=== PATIENT | male | born 1940 | race Caucasian/White ===

== ENCOUNTER → 2017-12-10 08:32 | Outpatient (CLI) | payer MEDICARE, OTHER, SELFPAY ==
--- NOTE | 2017-12-10 08:37 | CA_ITS ---
PROCEDURE: 2-D M-mode and color Doppler study INDICATIONS FOR THE TEST: Chest pain COPD Heart Murmur Tobacco SmokingX Palpitations Fatigue Syncope Edema HypertensionXDiabetes Mellitus Rheumatic Fever SOB PHAM Obesity Hyperlipidemia Family History HD Additional History AF PATIENT INFORMATION HEIGHT: 72 WEIGHT:210 GENDER: Male B/P:134/84 2-D/M-MODE INTERPRETATION: 2-D MEASUREMENTS OBSERVED VALUES IN CMS Right Ventricular Dimension (RVDd) 2.8 Interventricular Septum (Thickness)(IVsd) 1.0 Left Ventricular Internal Dimensions(LVIDd) 4.9 Left Ventricular Posterior Wall (Thickness)(LVPWd) 1.2 Aortic Root 3.6 Aortic Cusp Separation 2.1 Left Atrial Dimensions (LAD) 3.8 2D 1. Left atrium is mildly enlarged, left ventricle is normal size, mild concentric left ventricular hypertrophy, visually estimated ejection fraction of 55% with no regional wall motion abnormality. 2. The right atrium and right ventricle are normal size and contractility. 3. The aortic valve is minimally thickened and fibrosed. 4. The mitral and tricuspid valve leaflets are minimally thickened 5. The pulmonic valve is poorly visualized. 6. No significant pericardial effusion noted. DOPPLER INTERROGATION: Doppler interrogation of the aortic, mitral and tricuspid valvular presence of mild mitral and tricuspid regurgitation, calculated right ventricular systolic pressure is 45 mmHg consistent with moderate pulmonary hypertension, diastolic parameters are inconclusive. CONCLUSION: 1. Mildly enlarged left atrium, normal left ventricular size, mild concentric left ventricular hypertrophy, visually estimated ejection fraction 55% with no regional wall motion abnormality, diastolic parameters are inconclusive. 2. Mild mitral and tricuspid regurgitation, calculated right ventricular systolic pressure is 45 mmHg consistent with moderate pulmonary hypertension. 3. No significant pericardial effusion noted.
== END ==
PROVIDERS: PCP Family Medicine; Visit Provider Family Medicine
DX: I48.0 Paroxysmal atrial fibrillation (principal)
CPT/HCPCS: 93306

== ENCOUNTER → 2018-02-02 13:10 | Outpatient (CLI) | payer MEDICARE, OTHER, SELFPAY ==
--- NOTE | 2018-02-02 13:27 | CT_ITS ---
CT lung screening EXAM: CT LUNG LOW DOSE WO CONTRAST HISTORY: 30 pack-year smoking history asymptomatic for lung cancer ITS.REASON: H/O TOBACCO DEPENDENCE ORDERING PHYSICIAN: Mauro Garcia MD PATIENT AGE: 77 years COMPARISON: None TECHNIQUE: The exam was performed on a GE Light Speed [address] scanner using 2.90 mGy CTDI. A low dose helical CT CHEST was performed on a multi-detector scanner. All CT scans at the facility use one or more dose reduction, viz: automated exposure control, ma/kV adjustment per patient size (including targeted exams where dose is matched to indication, i.e. head), or iterative reconstruction technique. The LDCT was performed in a facility that meets the criteria for the screening program. Data regarding this exam was submitted to ACR which is an approved registry. The order for this exam indicates that it came as a result of a lung cancer screening counseling shard decision-making visit that included all the elements required of such a visit including smoking cessation. The radiologist interpreting this exam meets the [facility] criteria for the LDCT lung cancer screening program. The exam is reported using the Lung-RADS classification scale and reported to the ACR registry. NOTE: This study was performed for the specific purposes of lung cancer screening and is not an alternative to diagnostic chest CT. RADIATION DOSE: CTDI vol(CT dose Index-volume) = 2.90mG DLP (Dose Length Product) = 112.29 mGcm FINDINGS: Chronic obstructive bronchitis with hyperinflation and bronchial thickening 3 mm noncalcified nodule right lower lobe image #52. 3 mm calcified nodule right lower lobe image #55. Calcified granuloma right lung base posteriorly image #63 Other findings: Coronary artery calcifications, 2.7 cm left adrenal nodule and -9 Hounsfield units consistent with an adenoma. Old right rib fractures IMPRESSION: 1. Lung RADS Category: 2, benign 2. Other findings: COPD, coronary artery disease RECOMMENDATIONS: 12 month LDCT follow-up
[2018-02-02 14:10] VITALS: PULSE 81; PULSE 94
== END ==
PROVIDERS: PCP Family Medicine; Visit Provider Family Medicine
DX: I27.20 Pulmonary hypertension, unspecified (principal); F17.210 Nicotine dependence, cigarettes, uncomplicated; Z87.891 Personal history of nicotine dependence
CPT/HCPCS: 94060; 94640

== ENCOUNTER → 2019-02-03 14:47 | Outpatient (CLI) | payer MEDICARE, OTHER, SELFPAY ==
[2019-02-03 16:31] VITALS: BMI 27.1
== END ==
PROVIDERS: PCP Family Medicine; Visit Provider Family Medicine
DX: E11.9 Type 2 diabetes mellitus without complications (principal); Z71.3 Dietary counseling and surveillance
CPT/HCPCS: 97802

== ENCOUNTER → 2020-01-27 10:07 | Outpatient (CLI) | payer MEDICARE, OTHER, SELFPAY ==
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
[2020-01-27 10:55] LABS: Blood Urea Nitrogen 30 mg/dl (9-20); Estimated Glomerular Filt Rate 65 ml/min (>60); GFR (African American) 79 ML/MIN (>60)
== END ==
PROVIDERS: PCP Family Medicine; Visit Provider Family Medicine
DX: H53.9 Unspecified visual disturbance (principal); H53.40 Unspecified visual field defects; E11.65 Type 2 diabetes mellitus with hyperglycemia; I10 Essential (primary) hypertension; I48.91 Unspecified atrial fibrillation
CPT/HCPCS: 36415; 70553; 82565; 84520; A9576

== ENCOUNTER → 2020-02-05 08:22 | Outpatient (CLI) | payer MEDICARE, OTHER, SELFPAY ==
--- NOTE | 2020-02-05 08:26 | CA_ITS ---
APPROVED REPORT Gravity Prospector: Michelle Resendiz RVT Laterality: Bilateral Study Quality: Good Risk Factors Hypertension: TIA/CVA History Smoking CVA Doppler Spectral Velocity Analysis ECA (R) 108.00/13.90 cm/s ECA (L) 101.00/16.50 cm/s dICA (R) 78.60/29.20 cm/s dICA (L) 88.30/29.90 cm/s Dena (R) 68.10/20.20 cm/s Dena (L) 73.30/23.20 cm/s pICA (R) 49.40/15.70 cm/s pICA (L) 68.10/21.70 cm/s dCCA (R) 88.80/19.20 cm/s dCCA (L) 67.30/18.70 cm/s pCCA (R) 113.30/23.50 cm/s pCCA (L) 77.80/21.00 cm/s Vert (R) 55.40/17.20 cm/s Vert (L) 56.10/17.20 cm/s ICA/CCA 0.89 ICA/CCA 1.31 Findings Study suggests less than 20% stenosis of the right internal cartoid artery. Study suggests less than 20% stenosis of the left internal cartoid artery. Antegrade flow seen bilateral vertebral arteries. Conclusion Study suggests less than 20% stenosis of the right internal cartoid artery. Study suggests less than 20% stenosis of the left internal cartoid artery. Antegrade flow seen bilateral vertebral arteries. Electronically signed by : Govind Hastings MD 02/05/2020 17:03:59
--- NOTE | 2020-02-05 08:26 | CA_ITS ---
APPROVED REPORT EXAM: Comprehensive 2D, Doppler, and color-flow Echocardiogram Panel Fitter: Michelle Resendiz RVT Ht: 6 ft 0 in Wt: 220lbs BSA: 2.22 BP: 123/62 mmHg Indications: A-FIB,CVA,SMOKER,HTN 2D Dimensions LVOT 2.06 cm (M/F) 1.5-2.5 M-Mode Dimensions RVDd 3.22 cm (0.9-2.6) LA Diam 4.58 cm (1.9-4.0) LVDd 4.63 cm (3.5-5.7) Ao Diam 3.27 cm (2.0-3.7) LVDs 2.86 cm (3.5-5.7) IVSd 0.56 cm (0.6-1.1) PWd 0.89 cm (0.6-1.1) EF (Teich) 68.50% FS 38.20% EDV (Teich) 98.80 mL ESV (Teich) 31.10 mL LV Diastology E Decel Time 343.00 (160-240 msec) E/A Ratio 0.8 MED E' 10.10 (< 7 cm/sec) E'/MED E' Ratio 8.34 (>14) LAT E' 14.80 (<10 cm/sec) E/LAT E' Ratio 5.69 (>14) Mitral Valve MV E Max Arun. 84.00 (40-130 cm/s) MV A Velocity 101.00 (40-130 cm/s) E/A Ratio 0.83 MV Decel. Time 343.00 (160-240 ms) MV PHT 101.00 ms Pulmonary Valve PV Peak Velocity 85.00 (50-150 cm/s) Tricuspid Valve TR P. Velocity 281.00 cm/s RAP Estimate 10.00 mmHg RVSP 41.60 mmHg Left Ventricle Left atrium is mildly enlarged, left ventricle is normal size, mild concentric left ventricular hypertrophy, visually estimated ejection fraction 55% with no regional wall motion abnormality, grade 1 diastolic dysfunction seen without tissue Doppler evidence of raise left atrial pressure. Right Ventricle Right atrium and right ventricle are normal size and contractility. Aortic Valve Aortic valve is minimally thickened and fibrosed, there is no aortic stenosis or aortic insufficiency. Mitral Valve Mitral valve is grossly normal, there is mild mitral regurgitation. Tricuspid Valve Tricuspid valve is grossly normal, there is mild tricuspid regurgitation, tricuspid regurgitation jet velocity is inadequate for calculation of the right ventricular systolic pressure. Pulmonic Valve Pulmonic valve is poorly visualized. Great Vessels Aortic root is normal size. Pericardium No significant pericardial effusion noted. Conclusion 1. Mildly low left atrium, normal left ventricular size, mild concentric left ventricular hypertrophy, visually estimated ejection fraction 55% with no regional wall motion abnormality, grade 1 diastolic dysfunction seen without tissue Doppler evidence of raise left atrial pressure. 2. Mild mitral and tricuspid regurgitation 3. No significant pericardial effusion noted. Electronically signed by : Miki King, 02/06/2020 06:10:45
== END ==
PROVIDERS: PCP Family Medicine; Visit Provider Family Medicine
DX: I69.398 Other sequelae of cerebral infarction; H53.469 Homonymous bilateral field defects, unspecified side; I10 Essential (primary) hypertension; I48.0 Paroxysmal atrial fibrillation; R09.89 Other specified symptoms and signs involving the circulatory and respiratory systems
CPT/HCPCS: 93306; 93880

== ENCOUNTER 2020-03-13 18:54 | Emergency (ER) | payer MEDICARE, OTHER, SELFPAY ==
[2020-03-13 18:55] VITALS: BMI 27.8
--- NOTE | 2020-03-13 18:55 | CT_ITS ---
PROCEDURE: CT HEAD/BRAIN WO CON CLINICAL INDICATION: R sided weakness, altered speech Stroke alert COMPARISON: CT HEADWO CT head/brain wo con from 09/17/2018 TECHNIQUE: Axial images obtained. All CT scans at the facility use one or more dose reduction, viz: automated exposure control, ma/kV adjustment per patient size (including targeted exams where dose is matched to indication, i.e. head), or iterative reconstruction technique. FINDINGS: No midline shift, mass effect, intracranial hemorrhage, hydrocephalus, or extra-axial fluid collection is evident. There is subtle effacement of the brar-white matter differentiation the left temporal parietal junction which may be due to acute infarction. No midline shift or intracranial hemorrhage evident. There is some generalized motion artifact. Low-density changes are present in the right occipital lobe consistent with an old area of infarction. There is generalized atrophy with hypoattenuation of the periventricular white matter consistent with microangiopathic changes.The calvarium has an unremarkable appearance. No mastoid effusion. No sinus air-fluid level. IMPRESSION: 1. Possible acute infarction in the left temporoparietal junction. 2. Encephalomalacia change in the right occipital lobe. 3. Motion artifact which does decrease fine detail. Dictated by: Govind Hastings MD 03/14/2020 06:50 Govind Hastings MD in [place] 03/14/2020 06:50
--- NOTE | 2020-03-13 18:56 | PC.NURSE ---
pt to CT on ambulance stretcher with DARCY choi -stroke alert called
--- NOTE | 2020-03-13 19:00 | PC.NURSE ---
185 Stroke alert called 185Jason MAURO at bedside with EMS 185 pt sent straight up to CT accompanied by EMS and DARCY Robles
--- NOTE | 2020-03-13 19:06 | PC.NURSE ---
Pt returned from rad.
--- NOTE | 2020-03-13 19:07 | HMH.EDGENADL ---
ED Disposition Clinical Impression: Cerebrovascular accident Qualifiers: CVA mechanism: unspecified Qualified Code(s): I63.9 - Cerebral infarction, unspecified Disposition: Xfer Short-Term Hosp Condition on Discharge: Serious Referrals: Mauro Garcia MD [Primary Care Provider] - Forms: Transfer Record - ED - Critical Care Critical Care Time: Yes Attestation: On 03/13/20, the high probability of a clinically significant, sudden or life threatening deterioration of the following system(s) required my full and direct attention, intervention and personal management. The time I documented below is in addition to time spent performing reported procedures but includes the following listed in this critical care notation. Total Critical Care Time: 30 Vital system(s) involved:: Central Nervous System My critical care processes included: Assessment & monitoring of V/S, Initial and Re-exams, Data Review/Interpretation, Coordinating Care, Medication Orders and management, Documentation Medical Decision Making - Daniel Inquiry Pt receiving controlled substance: No Vital Signs: 03/13/20 19:16 Temperature 99.0 F Temperature Source Rectal Pulse Rate [Left Radial] 119 H Respiratory Rate 18 Blood Pressure [Right Arm] 119/72 Blood Pressure Mean [Right Arm] 87 Blood Pressure Source [Right Arm] Automatic Cuff Blood Pressure Position [Right Arm] Sitting 02 Sat by Pulse Oximetry 95 Oxygen Delivery Method Room Air - Lab Data Lab Results 03/13/20 19:10: WBC 18.3 H, RBC 4.05 L, Hgb 12.5 L, Hct 39.9 L, MCV 98.5 H, MCH 30.8, MCHC 31.3 L, RDW 16.6, Plt Count 100 L, MPV 9.2, Neut % (Auto) 73.5, Lymph % (Auto) 17.1, [place] % (Auto) 5.8, Eos % (Auto) 3.0, Baso % (Auto) 0.6, Neut # (Auto) 13.4 H, Lymph # (Auto) 3.1, [place] # (Auto) 1.1 H, Eos # (Auto) 0.6 H, Baso # (Auto) 0.1 03/13/20 19:10: PT 17.5 H, INR 1.65 H, APTT 38.7 H 03/13/20 19:10: Sodium 135 L, Potassium 4.1, Chloride 103, Carbon Dioxide 31 H, Anion Gap 5.1, BUN 46 H, Creatinine 0.90, Estimated Creat Clear 73, Estimated GFR 82, Est GFR ( Amer) 99, Glucose 128 H, Total Bilirubin 0.9, AST 94 H, ALT 46, Alkaline Phosphatase 280 H 03/13/20 19:16: Urine Color Dk yellow, Urine Appearance Clear, Urine pH 6.0, Ur Specific [place] 1.025, Urine Protein Negative, Urine Glucose (UA) Negative, Urine Ketones Negative, Urine Blood 1+, Urine Nitrate Negative, Urine Bilirubin Negative, Urine Urobilinogen 1.0, Ur Leukocyte Esterase Negative, Urine WBC 3-5, Ur Squamous Epith Cells 3-5, Urine Bacteria Trace Result diagrams: 03/13/20 19:10 03/13/20 19:10 Orders (Tests/Meds): ORDERS Category Date Time Status CT head/brain wo con Stat Cat Scan 03/13/20 18:55 Taken XR chest portable Stat Exams 03/13/20 20:17 Ordered XR chest portable Stat Exams 03/13/20 20:17 Ordered Complete Blood Count Auto Diff Stat Lab 03/13/20 19:10 Results Comprehensive Metabolic Panel Stat Lab 03/13/20 19:10 Results Drug Screen,Urine Stat Lab 03/13/20 19:16 Received PT/PTT Stat Lab 03/13/20 20:17 Ordered Trop I [Troponin I] Stat Lab 03/13/20 20:16 Ordered Troponin I Q3H Lab 03/13/20 23:30 Ordered Troponin I Q3H Lab 03/14/20 02:30 Ordered - CT Data CT Scan: Head Time Received: 19:20 ([facility]) ED CT Reviewed: Yes: I discussed the CT results w/the radiologist Findings Narrative: Streak artifact present. Likely acute infarct in the left MCA area. - ECG Data Tracing #1 EKG interpreted by Tra Madrigal MD: Rhythm: Atrial fib with rapid ventricular response Rate: 124 [place]: normal Ectopy: none Conduction: normal ST Segment Changes: Nonspecific T Wave Changes: Nonspecific Q Waves: none No evidence of acute ischemia or injury - Physician Consults Physician Consulted: Nakita Duncan stroke team Time: 19:35 Reason -: Neurological Eval/Care Comment/Response: Patient appears to have had a large vessel left middle cerebral artery area infarction. He is not a candidate for TPA as time of
[2020-03-13 19:16] VITALS: BP 119/72; PULSE 119; RESP 18; TEMP 37.2; O2SAT 95; BMI 25.9
--- NOTE | 2020-03-13 19:17 | ECG_ITS ---
APPROVED REPORT Exam: Resting ECG HR:124 bpm ECG Measurements Heart Rate 124 AXES QRSd 80 QRS 2 QT 392 T -20 QTc 563 Conclusion Accelerated Junctional rhythm with occasional premature ventricular complexes and fusion complexes Nonspecific ST and T wave abnormality Abnormal ECG Electronically signed by : Mauro Appiah, 03/14/2020 20:56:49
--- NOTE | 2020-03-13 19:21 | PC.NURSE ---
aprox. time. back from RAD. Dr. Madrigal gives NIH score of 13 at this time
--- NOTE | 2020-03-13 19:22 | PC.NURSE ---
calling [facility] for the stroke team
[2020-03-13 19:29] VITALS: BP 114/46; PULSE 114; RESP 16; TEMP 37.2; O2SAT 96
--- NOTE | 2020-03-13 19:29 | PC.NURSE ---
on the phone with . pt accepted by Dr. Hidalgo at ER
[2020-03-13 19:30] VITALS: BP 114/46; PULSE 110; RESP 17; O2SAT 94
--- NOTE | 2020-03-13 19:32 | PC.NURSE ---
Travis RN at bedside checking pedal pulses. reported +2 pulses in both feet auscultated with doppler
--- NOTE | 2020-03-13 19:35 | PC.NURSE ---
call placed to [facility] for transfer to . accepted by dr puckett
--- NOTE | 2020-03-13 19:36 | INFXCTL.NOTE ---
contacting [facility] at this time
--- NOTE | 2020-03-13 19:40 | PC.NURSE ---
flight accepted by [facility] at this time.
[2020-03-13 19:50] LABS: Alanine Aminotransferase 46 U/L (12-78); Alkaline Phosphatase 280 U/L (38-126); Anion Gap 5.1 mEq/L (5-15); Aspartate Amino Transferase 94 U/L (17-59); Bilirubin,Total 0.9 mg/dl (0.2-1.3); Blood Urea Nitrogen 46 mg/dl (9-20); Carbon Dioxide 31 mmol/L (22.0-30.0); Chloride 103 mmol/L (98-107); Creatinine Clearance Estimated 73 mL/min (50-200); Estimated Glomerular Filt Rate 82 ml/min (>60); GFR (African American) 99 ML/MIN (>60); Glucose 128 mg/dl (74-100); Potassium 4.1 mmoL/L (3.5-5.1); Sodium 135 mmol/L (136-145)
[2020-03-13 19:51] LABS: Basophils # 0.1 K/mm3 (0-0.2); Basophils % 0.6 % (0.1-2.0); Eosinophils # 0.6 K/mm3 (0.0-0.4); Hematocrit 39.9 % (42.0-52.0); Hemoglobin 12.5 g/dL (14.1-18.0); Lymphocytes # 3.1 K/mm3 (0.7-4.5); Lymphocytes % 17.1 % (10-50); Mean Corpuscular HGB Conc 31.3 g/dL (31.8-35.4); Mean Corpuscular Hemoglobin 30.8 pg (27.0-31.2); Mean Corpuscular Volume 98.5 fl (80-94); Mean Platelet Volume 9.2 fl (7.4-10.4); Monocytes # 1.1 K/mm3 (0.1-1.0); Monocytes % 5.8 % (1.7-9.3); Neutrophils # 13.4 K/mm3 (1.8-7.8); Neutrophils % 73.5 % (37.0-80.0); Platelet Count 100 K/mm3 (142-424); Red Blood Count 4.05 M/mm3 (4.60-6.20); Red Cell Distribution Width 16.6 % (11.5-17.5); White Blood Count 18.3 K/mm3 (4.8-10.8)
[2020-03-13 19:53] LABS: INR 1.65 (0.9-1.1); MANUAL DIFFERENTIAL MANUAL DIFFERENTIAL (MANUAL DIFF); Prothrombin Time 17.5 seconds (9.4-11.8)
[2020-03-13 19:54] LABS: Activated Partial Thrombo Time 38.7 seconds (23.6-34.0)
--- NOTE | 2020-03-13 19:54 | PC.NURSE ---
report called to Efren Ly RN at ER
[2020-03-13 19:58] LABS: Appearance,Urine CLEAR (Clear); Bilirubin,Urine Negative (Negative); Blood, Urine 1+ (Negative); Color,Urine DK YELLOW (Yellow); Glucose,Urine (UA) Negative (Negative); Ketones,Urine Negative (Negative); Leukocyte Esterase,Urine Negative (Negative); Microscopic, Urine URINE MICROSCOPIC (MICROSCOPIC); Nitrate,Urine Negative (Negative); Protein,Urine Negative (Negative); Specific Gravity, Urine 1.025 (1.005-1.030)
[2020-03-13 20:00] VITALS: BP 117/72; PULSE 120; RESP 17; O2SAT 95
[2020-03-13 20:12] LABS: Bacteria,Urine Trace /lpf
[2020-03-13 20:16] LABS: Eosinophils % 1 % (0-3); Lymphocytes % 16 % (10-50); Monocytes % 7 % (2-9); Neutrophils % 76 % (42-76); Total Cells Counted 100
[2020-03-13 20:16] LABS: Amphetamine/Metha Screen,Urine Negative ng/ml (<1000); Barbiturates Screen,Urine Negative ng/ml (<200)
[2020-03-13 20:17] LABS: Benzodiazepines Screen,Urine Negative ng/ml (<200)
--- NOTE | 2020-03-13 20:17 | XR_ITS ---
PROCEDURE: XR CHEST PORTABLE CLINICAL HISTORY: stroke symptoms Stroke alert COMPARISON: No exams were available for comparison FINDINGS: Cardiomegaly without failure. Low lung volumes. There are atelectatic changes in the right lung base. There is consolidation in the left lower lobe with silhouetting out of the left hemidiaphragm.There is some increased density in the left hilum which may be related to the underlying vasculature. Upright PA and lateral chest/chest CT may provide further evaluation No acute bony abnormalities. IMPRESSION: Consolidation in the left lung base with possible left hilar mass. Consider chest CT with contrast for further evaluation. Dictated by: Govind Hastings MD 03/14/2020 05:44 Govind Hastings MD in [place] 03/14/2020 05:44
[2020-03-13 20:18] LABS: Cannabinoid Screen,Urine Negative ng/ml (<50); Cocaine Screen,Urine Negative ng/ml (<300)
[2020-03-13 20:19] LABS: Methadone Screen,Urine Negative ng/ml (<300)
[2020-03-13 20:20] LABS: Opiate Screen,Urine Negative ng/ml (<300); Phencyclidine Screen,Urine Negative ng/ml (<25)
[2020-03-13 20:22] LABS: Albumin Level 2.6 g/dl (3.5-5.0); Albumin/Globulin Ratio 0.7 (1.1-1.8); Anisocytosis 1+; Calcium 9.3 mg/dl (8.4-10.2); Globulin 3.8 g/dL (1.3-3.2); Hypochromasia 1+; Macrocytosis 1+; Platelet Estimate Slight Decrease; RBC Morphology Normal; Total Protein,Serum 6.4 g/dl (6.3-8.2)
--- NOTE | 2020-03-13 20:29 | PC.NURSE ---
[facility] at bedside
[2020-03-13 20:30] VITALS: BP 141/57; PULSE 140; RESP 19; O2SAT 96
--- NOTE | 2020-03-13 20:30 | PC.NURSE ---
report given to [facility]
--- NOTE | 2020-03-13 20:36 | PC.NURSE ---
patient left er with flight crew
[2020-03-13 20:44] VITALS: BP 141/57; PULSE 140; RESP 16; TEMP 37.2; O2SAT 96
[2020-05-15 14:00] LABS: POC Glucose,Bedside 111 (70-110)
== END 2020-03-13 20:49 | disposition short-term general hospital (02) ==
PROVIDERS: Emergency Provider Emergency Medicine; PCP Family Medicine
DX: I63.89 Other cerebral infarction (principal); R47.81 Slurred speech; G83.21 Monoplegia of upper limb affecting right dominant side; I10 Essential (primary) hypertension; R29.713 NIHSS score 13
CPT/HCPCS: 70450; 71045; 80053; 80305; 81001; 82962; 85007; 85025; 85610; 85730; 93005; 99284